=== PATIENT | male | born 1985 | race Caucasian/White ===

== ENCOUNTER 2017-05-27 10:17 | Emergency (ER) | payer OTHER ==
[2017-05-27 11:51] LABS: BILIRUBIN,URINE NEGATIVE (NEGATIVE)
[2017-05-27 11:53] LABS: BASOPHILS % (AUTO) 0.6 %; EOSINOPHILS # (AUTO) 0.2 10^3/uL (0.0-0.7); EOSINOPHILS % (AUTO) 2.7 %; HCT - HEMATOCRIT 40.6 % (42.0-52.0); LYMPHOCYTES # (AUTO) 2.2 10^3/uL (1.5-3.5); LYMPHOCYTES % (AUTO) 32.1 %; MEAN CORPUSCULAR HEMOGLOBIN 28.6 pg (27.0-31.0); MEAN CORPUSCULAR HGB CONC 34.5 g/dL (32.0-36.0); MEAN CORPUSCULAR VOLUME 83.1 fL (80.0-94.0); MEAN PLATELET VOLUME 7.8 fL (7.4-11.4); MONOCYTES # (AUTO) 0.4 10^3/uL (0.0-1.0); MONOCYTES % (AUTO) 6.4 %; NEUTROPHILS # (AUTO) 3.9 10^3/uL (1.5-6.6); NEUTROPHILS % (AUTO) 58.2 %; RED BLOOD COUNT 4.89 10^6/uL (4.70-6.10); RED CELL DISTRIBUTION WIDTH 12.8 % (12.0-15.0); UNCORRECTED WHITE BLOOD COUNT 6.8 x10^3/uL; WHITE BLOOD COUNT 6.8 x10^3/uL (4.8-10.8)
[2017-05-27 12:05] LABS: ALBUMIN/GLOBULIN RATIO 1.6 (1.0-2.2); BILIRUBIN,TOTAL 0.9 mg/dL (0.2-1.0); CALCIUM 9.2 mg/dL (8.5-10.3); POTASSIUM 4.2 mmol/L (3.5-5.0); TOTAL PROTEIN 7.5 g/dL (6.7-8.2)
[2017-05-27 12:05] LABS: UA CHARGE (STRIP ONLY) YES; UR CULTURE IF IND NOT INDICATED
[2017-05-27] MEDS ORDERED: IOPAMIDOL-300 100 ML VIAL IVP ONE (12:42)
--- NOTE | 2017-05-27 13:01 | CT Preliminary Report ---
Exam: CT Abdomen/Pelvis W/ IMPRESSION: No acute abnormality in the abdomen or pelvis. Specifically, there are no findings to exp jojo left lower quadrant pain. [facility] SITE ID: [id number]
--- NOTE | 2017-05-27 13:04 | CT Report ---
EXAM: CT ABDOMEN AND PELVIS EXAM DATE: 05/27/2017 12:01 PM. CLINICAL HISTORY: LLQ abd. pain. COMPARISONS: None. TECHNIQUE: Routine helical CT imaging was performed through the abdomen and pelvis. IV contrast: 100 cc Isovue-300. Enteric contrast: No. Reconstructions: Coronal and sagittal. Per technologist: The IV line came apart from the hub; scan was stopped to repair the IV and then restarted. Those images were clipped so the patient was rescanned. In accordance with CT protocol optimization, one or more of the following dose reduction techniques w ere utilized for this exam: automated exposure control, adjustment of mA and/or KV based on patient s ize, or use of iterative reconstructive technique. FINDINGS: Somewhat suboptimal evaluation secondary to delayed phase imaging. Lung Bases: Minimal bibasilar atelectasis. Otherwise normal. Liver: Within normal limits. Gallbladder/Bile Ducts: Within normal limits. Spleen: Within normal limits. Pancreas: Normal. Adrenal Glands: Normal. Kidneys: Low density 4.5 cm exophytic anterior left interpolar cyst. No hydronephrosis bilaterally. N o evidence of solid renal mass. Peritoneal Cavity/Bowel: No ascites or pneumoperitoneum. No bowel obstruction or abnormal stool burde n. No focal inflammatory change, adenopathy, or mass. The appendix is well visualized and normal. Pelvic Organs: The urinary bladder and imaged pelvic organs are within normal limits. Vasculature: Normal. Bones: No significant abnormality. Other: None. IMPRESSION: No acute abnormality in the abdomen or pelvis. Specifically, there are no findings to exp jojo left lower quadrant pain. [facility] Referring Provider Line: [phone] SITE ID: [id number]
--- NOTE | 2017-05-27 13:16 | ED Physician Documentation ---
PD HPI ABD PAIN - Stated complaint Stated Complaint: ABD PX/LUMP L SIDE ABD - Chief complaint Chief Complaint: Abd Pain - History obtained from History obtained from: Patient - History of Present Illness Timing - onset: How many days ago (2) Timing - details: Still present Quality: Pain Location: Other (Left sided abdomen.) Worsened by: Moving, Palpation Associated symptoms: No: Fever, Nausea, Vomiting, Diarrhea, Constipation, Dysuria, Chest pain Similar symptoms before: Has not had sx before - Additional information Additional information: The patient is a 31-year-old male who presents with left-sided abdominal pain that started 2 days ago and has been persistent since that time. It is worse with movement or with palpation. He denies any associated nausea, vomiting, fever, dysuria, or testicular pain. He has been having normal bowel movements. He denies history of similar symptoms in the past. He denies any traumatic injury. He has had no previous abdominal surgery. Review of Systems Constitutional: denies: Fever, Chills Nose: denies: Congestion Throat: denies: Sore throat Cardiac: denies: Chest pain / pressure Respiratory: denies: Dyspnea, Cough GI: reports: Abdominal Pain. denies: Nausea, Vomiting, Diarrhea : denies: Dysuria, Testicular pain Skin: denies: Rash Musculoskeletal: denies: Back pain, Extremity pain Neurologic: denies: Focal weakness, Numbness, Headache PD PAST MEDICAL HISTORY - Past Medical History Past Medical History: No Cardiovascular: None Respiratory: None Neuro: None Endocrine/Autoimmune: None GI: None - Present Medications Home Medications: Ambulatory Orders Medication Instructions Recorded Confirmed No Known Home Medications [No 05/27/17 05/27/17 Known Home Medications] - Allergies Allergies/Adverse Reactions: Allergies Allergy/AdvReac Type Severity Reaction Status Date / Time No Known Drug Allergies Allergy Verified 05/27/17 10:29 - Social History Does the pt smoke?: No Smoking Status: Never smoker Does the pt drink ETOH?: Yes Does the pt have substance abuse?: No - Immunizations Immunizations are current?: Yes - POLST Patient has POLST: No PD ED PE NORMAL - Vitals Vital signs reviewed: Yes (normal) - General General: Alert and oriented X 3, Well developed/nourished - HEENT HEENT: Atraumatic, EOMI, Pharynx benign - Neck Neck: No adenopathy, No JVD - Cardiac Cardiac: RRR, No murmur - Respiratory Respiratory: No respiratory distress, Clear bilaterally - Abdomen Abdomen: Normal bowel sounds, Soft, No organomegaly, Other (Mild tenderness to palpation of the left lower quadrant and left abdominal wall to the costal margin in the posterior axillary line. There is no rebound tenderness or guarding. No masses palpated.) - Back Back: No CVA TTP - Derm Derm: No rash - Extremities Extremities: No edema, No calf tenderness / cord - Neuro Neuro: Alert and oriented X 3, No motor deficit, Normal speech Results - Vitals Vitals: Oxygen O2 Source Room air - Labs Labs: Laboratory Tests 05/27/17 05/27/17 05/27/17 10:47 11:35 11:35 WBC 6.8 RBC 4.89 Hgb 14.0 Hct 40.6 L MCV 83.1 MCH 28.6 MCHC 34.5 RDW 12.8 Plt Count 218 MPV 7.8 Neut # 3.9 Lymph # 2.2 [place] # 0.4 Eos # 0.2 Baso # 0.0 Absolute Nucleated RBC 0.00 Nucleated RBCs 0.0 Sodium 140 Potassium 4.2 Chloride 105 Carbon Dioxide 29 Anion Gap 6.0 BUN 14 Creatinine 1.0 Estimated GFR (MDRD) 87 L Glucose 85 Calcium 9.2 Total Bilirubin 0.9 AST 32 ALT 28 Alkaline Phosphatase 76 Total Protein 7.5 Albumin 4.6 Globulin 2.9 Albumin/Globulin Ratio 1.6 Lipase 33 Urine Color YELLOW Urine Clarity CLEAR Urine pH 7.0 Ur Specific [place] <=1.005 Urine Protein NEGATIVE Urine Glucose (UA) NEGATIVE Urine Ketones NEGATIVE Urine Occult Blood NEGATIVE Urine Nitrite NEGATIVE Urine Bilirubin NEGATIVE Urine Urobilinogen 0.2 (NORMAL) Ur Leukocyte Esterase NEGATIVE Ur Microscopic Review NOT INDICATED Urine Culture Comments NOT INDICATED - Rads (name of study) CT abd/pelvis with IV contrast Radiology: Prelim report reviewed, EMP read contemporaneously, See rad report ( No acute abnormality in the abdomen or pelvis. Specifically, there is no findings to explain left lower quadrant pain.) PD MEDICAL DECISION MAKING - ED course Complexity details: reviewed results, re-evaluated patient, considered differential, d/w patient, d/w family ED course: The patient's presentation is most consistent with abdominal wall strain, although the event or activity that would have caused the abdominal discomfort is not known at this time. I doubt gastritis, diverticulitis, renal colic, or other intra-abdominal process to explain his symptoms. CBC, chemistry panel, urinalysis, and CT scan of the abdomen and pelvis are all normal. The patient declined any treatment for his symptoms. I discussed with him the results of his workup, symptomatic treatment and outpatient follow-up, as well as potentially worrisome signs or symptoms that should prompt reevaluation in the emergency department. Departure - Departure Disposition: 01 Home, Self Care Clinical Impression: Abdominal wall pain in left lower quadrant Condition: Stable Instructions: ED Strain Abdominal Muscle Follow-Up: [facility] [Provider Group] Comments: You can use ibuprofen, up to 800 mg 3 times daily if needed for pain. Let pain be your guide to activity level. Follow-up with your primary physician within 2 weeks. Call to schedule appointment. Return to the emergency department if you develop increasing abdominal pain, fever, persistent vomiting, or otherwise worsening symptoms. Discharge Date/Time: 05/27/17 13:38
[2017-05-27 13:37] VITALS: BP 126/81
== END 2017-05-27 13:38 | disposition home or self-care (01) ==
LOC: ED 10:17
DX: R10.32 Left lower quadrant pain (principal)
CPT/HCPCS: 36415; 74177; 80053; 81003; 83690; 85025; 99283; 99284; Q9967; 81001; 87086

== ENCOUNTER 2017-06-05 13:46 | Emergency (ER) | payer OTHER ==
[2017-06-05 14:00] VITALS: BP 119/71
[2017-06-05] MEDS ORDERED: valACYclovir 500 MG TABLET PO STA (14:27)
--- NOTE | 2017-06-05 14:35 | ED Physician Documentation ---
History of Present Illness - Stated complaint Stated Complaint: ABD PX - Chief complaint Chief Complaint: Abd Pain - Additonal information Additional information: Patient is a 31-year-old man who is otherwise healthy. He was seen earlier in the week for abdominal pain and had negative workup including a CAT scan imaging of the abdomen and pelvis. She presents today because the pain is still in the left side of the abdomen however he has developed a rash that extends from the left lower back to the periumbilical area on the left side. Denies any fever chills there is no nausea vomiting constipation or diarrhea. Review of systems: For pertinent positive and negatives in the review of systems please see the history of present illness, otherwise all other systems have been reviewed and are negative. Dragon disclaimer: Parts of this medical record were created using voice recognition technology. Because of the inherent limitations of this system, occasional same sounding word substitutions do occur and persist despite proofreading. Please read the document for context. Review of Systems GI: denies: Abdominal Swelling, Nausea, Vomiting, Constipation, Diarrhea, Hematemesis, Bloody / black stool Skin: reports: Rash PD PAST MEDICAL HISTORY - Past Medical History Cardiovascular: None Respiratory: None Neuro: None Endocrine/Autoimmune: None GI: None - Past Surgical History Past Surgical History: Yes - Present Medications Home Medications: Ambulatory Orders Medication Instructions Recorded Confirmed Tramadol HCl 50 mg PO Q8HR PRN #14 tablet 06/05/17 Valacyclovir HCl [Valtrex] 1,000 mg PO BID #14 tablet 06/05/17 - Allergies Allergies/Adverse Reactions: Allergies Allergy/AdvReac Type Severity Reaction Status Date / Time No Known Drug Allergies Allergy Verified 05/27/17 10:29 - Social History Does the pt smoke?: No Smoking Status: Never smoker Does the pt drink ETOH?: Yes Does the pt have substance abuse?: No - Immunizations Immunizations are current?: Yes - POLST Patient has POLST: No PD ED PE NORMAL - Vitals Vital signs reviewed: Yes - General General: Alert and oriented X 3, No acute distress, Well developed/nourished - HEENT HEENT: Atraumatic, PERRL, EOMI, Pharynx benign, Dentition benign - Neck Neck: Supple, no meningeal sign, No JVD, No bruit - Cardiac Cardiac: RRR, No murmur, No gallop, No rub - Respiratory Respiratory: No respiratory distress, Clear bilaterally - Abdomen Abdomen: Normal bowel sounds, Non tender, Non distended - Derm Derm: Other (vesicular herpetic rash t10 distribution left side) Results - Vitals Vitals: Vital Signs - 24 hr 06/05/17 13:57 Temperature 36.5 C Heart Rate 73 Respiratory 18 Rate Blood Pressure 119/71 O2 Saturation 98 Oxygen O2 Source Room air PD MEDICAL DECISION MAKING - ED course Complexity details: reviewed old records ED course: Otherwise healthy 31-year-old man with a new onset rash in the left lower quadrant T10 distribution that explains his recent abdominal pain. He has been under considerable stress with his job in 2 young children at home. He was given Valtrex here and will be discharged on Valtrex he was asked to follow-up with his physician when better to talk about his herpes zoster and possible things to check in the future. Disposition: To home Clinical impression: 1. Acute herpes zoster left T10 distribution rash Departure - Departure Disposition: 01 Home, Self Care Clinical Impression: Shingles outbreak Qualifiers: Herpes zoster complications: without complications Qualified Code(s): B02.9 - Zoster without complications Condition: Good Instructions: ED Shingles Follow-Up: your,physician [Other] Prescriptions: Tramadol HCl 50 mg PO Q8HR PRN #14 tablet PRN Reason: Pain Valacyclovir HCl [Valtrex] 1,000 mg PO BID #14 tablet
[2017-06-05] MEDS ORDERED: valACYclovir 500 MG TABLET ONE (14:37)
== END 2017-06-05 14:41 | disposition home or self-care (01) ==
LOC: ED 13:46
DX: B02.9 Zoster without complications (principal)
CPT/HCPCS: 99283; A9270; 80053; 83690; 85025

== ENCOUNTER 2018-05-17 11:31 | Emergency (ER) | payer OTHER ==
[2018-05-17 12:12] LABS: BILIRUBIN,URINE NEGATIVE (NEGATIVE); GLUCOSE, URINE (UA) NEGATIVE (NEGATIVE); KETONES,URINE (UA) NEGATIVE (NEGATIVE); LEUKOCYTE ESTERASE, URINE NEGATIVE (NEGATIVE); NITRITE,URINE NEGATIVE (NEGATIVE); OCCULT BLOOD,URINE NEGATIVE (NEGATIVE); PROTEIN,URINE NEGATIVE (NEGATIVE); UROBILINOGEN,URINE 0.2 (NORMAL) E.U./dL (NORMAL)
[2018-05-17 12:13] LABS: CLARITY,URINE CLEAR (CLEAR)
--- NOTE | 2018-05-17 12:19 | ED Physician Documentation ---
PD HPI ABD PAIN - Stated complaint Stated Complaint: DIZZY/SIDE PX - Chief complaint Chief Complaint: Abd Pain - History obtained from History obtained from: Patient - History of Present Illness Timing - onset: Other (This is a previously healthy 32-year-old gentleman who is active duty in the [employer]. He has had increasing what he describes as dizziness for the last couple of months. It is a frontal head pressure, but no headache with occasional ear fullness and ringing. It is worse if he stands up. Ask him if it is a spinning sensation he vacillates and eventually says may be partially and then no. He notes occasional difficulty swallowing without sore throat. He also has a left flank pain that is slowly worsening over 2 weeks without hematuria or radiation. There is no associated fatigue, weight loss, fevers, chills. He does have a runny nose but no sore throat.) Review of Systems Constitutional: denies: Fever, Chills, Myalgias, Fatigue, Weight Loss, Sweats Eyes: denies: Loss of vision, Decreased vision Ears: denies: Ear pain Nose: reports: Rhinorrhea / runny nose. denies: Congestion Throat: denies: Sore throat GI: denies: Abdominal Pain, Nausea, Vomiting, Constipation, Diarrhea : denies: Dysuria, Frequency, Hematuria PD PAST MEDICAL HISTORY - Past Medical History Past Medical History: No Cardiovascular: None Respiratory: None Endocrine/Autoimmune: None GI: None - Past Surgical History Past Surgical History: Yes - Present Medications Home Medications: Ambulatory Orders Medication Instructions Recorded Confirmed Tramadol HCl 50 mg PO Q8HR PRN #14 tablet 06/05/17 Valacyclovir HCl [Valtrex] 1,000 mg PO BID #14 tablet 06/05/17 - Allergies Allergies/Adverse Reactions: Allergies Allergy/AdvReac Type Severity Reaction Status Date / Time No Known Drug Allergies Allergy Verified 05/27/17 10:29 - Social History Does the pt smoke?: No Smoking Status: Never smoker Does the pt drink ETOH?: Yes Does the pt have substance abuse?: No - Immunizations Immunizations are current?: Yes - POLST Patient has POLST: No PD ED PE NORMAL - Vitals Vital signs reviewed: Yes - General General: Alert and oriented X 3, No acute distress - HEENT HEENT: PERRL, EOMI, Other (He has a very small amount of nystagmus in all directions.) - Neck Neck: Supple, no meningeal sign, No bony TTP - Cardiac Cardiac: RRR, No murmur - Respiratory Respiratory: No respiratory distress, Clear bilaterally - Abdomen Abdomen: Normal bowel sounds, Soft, Non tender - Back Back: Other (There is focal tenderness around rib 10, posterior axillary line on the left with a little lump there that I think is a lipoma.) - Derm Derm: Normal color, Warm and dry - Extremities Extremities: No edema, No calf tenderness / cord - Neuro Neuro: Alert and oriented X 3, Normal speech - Psych Psych: Normal mood, Normal affect Results - Vitals Vitals: Vital Signs - 24 hr 05/17/18 11:40 Temperature 36.5 C Heart Rate 76 Respiratory 20 Rate Blood Pressure 130/80 O2 Saturation 98 Oxygen O2 Source Room air - Labs Labs: Laboratory Tests 05/17/18 05/17/18 05/17/18 11:55 12:32 12:32 WBC 5.9 RBC 4.87 Hgb 14.1 Hct 40.5 L MCV 83.1 MCH 28.9 MCHC 34.8 RDW 12.8 Plt Count 230 MPV 7.5 Neut # (Auto) 3.1 Lymph # (Auto) 2.1 [place] # (Auto) 0.4 Eos # (Auto) 0.3 Baso # (Auto) 0.0 Absolute Nucleated RBC 0.00 Nucleated RBC % 0.0 Sodium 139 Potassium 4.0 Chloride 104 Carbon Dioxide 29 Anion Gap 6.0 BUN 17 Creatinine 1.0 Estimated GFR (MDRD) 86 L Glucose 94 Calcium 9.3 Total Bilirubin 0.7 AST 30 ALT 27 Alkaline Phosphatase 67 Total Protein 7.8 Albumin 4.6 Globulin 3.2 Albumin/Globulin Ratio 1.4 Lipase 36 Urine Color LIGHT YELLOW Urine Clarity CLEAR Urine pH 7.0 Ur Specific [place] <=1.005 Urine Protein NEGATIVE Urine Glucose (UA) NEGATIVE Urine Ketones NEGATIVE Urine Occult Blood NEGATIVE Urine Nitrite NEGATIVE Urine Bilirubin NEGATIVE Urine Urobilinogen 0.2 (NORMAL) Ur Leukocyte Esterase NEGATIVE Ur Microscopic Review NOT INDICATED Urine Culture Comments NOT INDICATED - Rads (name of study) CT Head Radiology: EMP read contemporaneously (normal) CT A/P Radiology: EMP read contemporaneously (Redemonstration of similarly sized 4.5 cm exophytic left renal lesion is not characterized as simple.) PD MEDICAL DECISION MAKING - ED course ED course: 32-year-old gentleman, active duty in the [employer] with odd complaints of dizziness which does not fit a particular pattern and left flank pain. She does have nystagmus on exam, otherwise his physical examination is normal and imaging shown. [place] with [place], to consider MRI of the head and left kidney. - Sepsis Event Vital Signs: Vital Signs - 24 hr 05/17/18 11:40 Temperature 36.5 C Heart Rate 76 Respiratory 20 Rate Blood Pressure 130/80 O2 Saturation 98 Oxygen O2 Source Room air Departure - Departure Disposition: 01 Home, Self Care Clinical Impression: Flank pain, Renal cyst, Nystagmus Condition: Good Record reviewed to determine appropriate education?: Yes Instructions: Simple Renal Cysts, ED Abdominal Pain Unkn Cause Comments: FOLLOWUP AT [facility], I SPOKE WITH DR RYAN TODAY, YOU MAY NEED MORE IMAGING OF YOUR BRAIN AND LEFT KIDNEY. RETURN FOR NEW OR WORSENING SYMPTOMS.
[2018-05-17] MEDS ORDERED: IOPAMIDOL-300 100 ML VIAL ONE (12:28)
[2018-05-17 12:38] LABS: BASOPHILS % (AUTO) 0.8 %; EOSINOPHILS # (AUTO) 0.3 10^3/uL (0.0-0.7); EOSINOPHILS % (AUTO) 5.1 %; HGB - HEMOGLOBIN 14.1 g/dL (14.0-18.0); LYMPHOCYTES # (AUTO) 2.1 10^3/uL (1.5-3.5); LYMPHOCYTES % (AUTO) 34.5 %; MEAN CORPUSCULAR HEMOGLOBIN 28.9 pg (27.0-31.0); MEAN CORPUSCULAR HGB CONC 34.8 g/dL (32.0-36.0); MEAN CORPUSCULAR VOLUME 83.1 fL (80.0-94.0); MEAN PLATELET VOLUME 7.5 fL (7.4-11.4); MONOCYTES # (AUTO) 0.4 10^3/uL (0.0-1.0); MONOCYTES % (AUTO) 7.5 %; NEUTROPHILS # (AUTO) 3.1 10^3/uL (1.5-6.6); NEUTROPHILS % (AUTO) 52.1 %; PLT - PLATELET COUNT 230 10^3/uL (130-450); RED BLOOD COUNT 4.87 10^6/uL (4.70-6.10); RED CELL DISTRIBUTION WIDTH 12.8 % (12.0-15.0); WHITE BLOOD COUNT 5.9 x10^3/uL (4.8-10.8)
[2018-05-17 12:57] LABS: ALBUMIN 4.6 g/dL (3.2-5.5); ALBUMIN/GLOBULIN RATIO 1.4 (1.0-2.2); BILIRUBIN,TOTAL 0.7 mg/dL (0.2-1.0); CALCIUM 9.3 mg/dL (8.5-10.3); TOTAL PROTEIN 7.8 g/dL (6.7-8.2)
--- NOTE | 2018-05-17 13:29 | CT Report ---
Procedure Date: 05/17/2018 Accession Number: [id number] / [id number] Procedure: CT - Head W/O CPT Code: FULL RESULT: EXAM: CT HEAD EXAM DATE: 05/17/2018 01:19 PM. CLINICAL HISTORY: Dizzy; ataxia. COMPARISON: None. TECHNIQUE: Multiaxial CT images were obtained from the foramen magnum to the vertex. Reformats: Sagittal and coronal. IV contrast: None. In accordance with CT protocol optimization, one or more of the following dose reduction techniques were utilized for this exam: automated exposure control, adjustment of mA and/or KV based on patient size, or use of iterative reconstructive technique. FINDINGS: Parenchyma: No intraparenchymal hemorrhage. No evidence of mass, midline shift, or CT findings of infarction. Mari-white differentiation is distinct. Extraaxial Spaces: Normal for age. No subdural or epidural collections identified. Ventricles: Normal in size and position. Sinuses and Orbits: Imaged paranasal sinuses, orbits, and mastoids show no significant abnormality. Bones: No evidence of fracture or calvarial defect. Other: None. IMPRESSION: No acute intracranial abnormality. [facility]
--- NOTE | 2018-05-17 13:37 | CT Report ---
Procedure Date: 05/17/2018 Accession Number: [id number] / [id number] Procedure: CT - Abdomen/Pelvis W/ CPT Code: FULL RESULT: EXAM: CT ABDOMEN AND PELVIS EXAM DATE: 05/17/2018 01:19 PM. CLINICAL HISTORY: IV only, left flank pain and lump about rib 10. COMPARISONS: Abdomen/pelvis with contrast 05/27/2017 12:00 AM. TECHNIQUE: Routine helical CT imaging was performed through the abdomen and pelvis. IV contrast: ISOVUE 300 100mL. Enteric contrast: No. Reconstructions: Coronal and sagittal. In accordance with CT protocol optimization, one or more of the following dose reduction techniques were utilized for this exam: automated exposure control, adjustment of mA and/or KV based on patient size, or use of iterative reconstructive technique. FINDINGS: Lung Bases: Unremarkable. Liver: There is a right lobe hepatic hypodensity which is too small to characterize. Liver is otherwise normal. Gallbladder/Bile Ducts: Unremarkable. Spleen: Normal. Pancreas: Normal. Adrenal Glands: Normal. Kidneys: 4.8 x 4.3 cm cyst which is not characterized as simple is redemonstrated. The kidneys otherwise do not demonstrate hydronephrosis calculi or perinephric fat stranding within limitation that contrast examination may obscure a very small ureteral calculus. No hydroureter or periureteric fat stranding is seen. Peritoneal Cavity/Bowel: Normal. No free fluid, free air or adenopathy. No masses or acute inflammatory process. The appendix is well visualized and normal. Pelvic Organs: Normal. The bladder and visualized pelvic organs are within normal limits. Vasculature: No aneurysms or other significant abnormality. Bones: No significant abnormality. Other: None. IMPRESSION: 1. No acute intraabdominal or intrapelvic abnormality. 2. Left renal cyst which is not characterized as simple by CT. Recommend retroperitoneal ultrasound for further characterization. [facility]
[2018-05-17 13:59] VITALS: BP 113/85
[2018-05-17] MEDS ORDERED: IOPAMIDOL-300 100 ML VIAL IVP ONE (15:00)
== END 2018-05-17 14:05 | disposition home or self-care (01) ==
LOC: ED 11:31
DX: R10.32 Left lower quadrant pain (principal); N28.1 Cyst of kidney, acquired; H55.00 Unspecified nystagmus
CPT/HCPCS: 70450; 74177; 80053; 81003; 83690; 85025; 99283; Q9967; 36415; 81001; 87086

== ENCOUNTER 2018-05-29 09:11 | Emergency (ER) | payer OTHER ==
--- NOTE | 2018-05-29 09:29 | ED Physician Documentation ---
PD HPI URI - Stated complaint Stated Complaint: HARD TO SWOLLOW/THROWING UP - Chief complaint Chief Complaint: Heent - History obtained from History obtained from: Patient - History of Present Illness Timing - onset: How many hours ago (1), Today (about 8:15, has onset just after taking Ibuprofen for some aches. [place] like it was stuck in his throat/esophagus and had trouble swallowing. No trouble breathing per se. No general rash, itching, nor feeling of lightheaded. Had pain with swallowing and was vomiting up any attempted oral intake. Here for evaluation. Still feeling uncomfortable with swallowing.) Timing duration: Hours (1) Timing details: Abrupt onset, Still present Associated symptoms: Sore throat. No: Fever, Chills, Nasal congestion, Swollen nodes, Dry cough, Chest pain, Dyspnea Contributing factors: Other (onset after swallowing oral med). No: Sick contact , Travel, Immunocompromised Worsened by: Other (swallowing/ drinking fluids.) Similar symptoms before: Has not had sx before Recently seen: Not recently seen Review of Systems Constitutional: denies: Fever, Chills Nose: denies: Rhinorrhea / runny nose, Congestion Throat: reports: Sore throat. denies: Oral lesions / sores, Swollen tonsils Cardiac: denies: Chest pain / pressure, Palpitations Respiratory: denies: Dyspnea, Cough Skin: denies: Rash, Lesions Neurologic: denies: Generalized weakness, Near syncope, Syncope PD PAST MEDICAL HISTORY - Past Medical History Cardiovascular: None Respiratory: None Endocrine/Autoimmune: None GI: None - Past Surgical History Past Surgical History: Yes - Present Medications Home Medications: Ambulatory Orders Medication Instructions Recorded Confirmed Dexamethasone [Decadron] 4 mg PO DAILY #5 tablet 05/29/18 Lidocaine Viscous 2% [Xylocaine 5 ml PO Q4H PRN #1 bottle 05/29/18 Viscous 2%] - Allergies Allergies/Adverse Reactions: Allergies Allergy/AdvReac Type Severity Reaction Status Date / Time No Known Drug Allergies Allergy Verified 05/27/17 10:29 - Social History Does the pt smoke?: No Smoking Status: Never smoker Does the pt drink ETOH?: Yes Does the pt have substance abuse?: No - Immunizations Immunizations are current?: Yes - POLST Patient has POLST: No PD ED PE NORMAL - Vitals Vital signs reviewed: Yes - General General: Alert and oriented X 3, No acute distress, Well developed/nourished - HEENT HEENT: Ears normal, Pharynx benign, Other (normal voice. Able to swallow saliva and small sips of water. ) - Neck Neck: Supple, no meningeal sign, No adenopathy - Cardiac Cardiac: RRR, No murmur - Respiratory Respiratory: Clear bilaterally - Neuro Neuro: Alert and oriented X 3, No motor deficit, Normal speech Results - Vitals Vitals: Oxygen O2 Source Room air PD MEDICAL DECISION MAKING - ED course Complexity details: considered differential (likely local irritation from ibuprofen stuck briefly. Better with GI cocktail. Will give it a day. Less likely allergy to the Ibuprofen, given just throat irritation and not other allergy response symptoms. ), d/w patient - Sepsis Event Vital Signs: Oxygen O2 Source Room air Departure - Departure Disposition: 01 Home, Self Care Clinical Impression: Esophageal abnormality Condition: Stable Record reviewed to determine appropriate education?: Yes [facility]] Prescriptions: Dexamethasone [Decadron] 4 mg PO DAILY #5 tablet Lidocaine Viscous 2% [Xylocaine Viscous 2%] 5 ml PO Q4H PRN #1 bottle PRN Reason: Pain Comments: Drink lots of fluids today. Soft food only today. This may have been an irritation of the esophagus from a pills getting stuck and that should heal within a day or so. Use lidocaine if needed for irritation of the throat. Decadron daily for a few more days for inflammation. I would also consider possibly an allergic reaction and so avoid the ibuprofen for couple of days and use Tylenol instead if needed for pains. Continue your allergy medicines. If you are feeling better over the next few days you can take an ibuprofen again and see if you have any similar symptoms. Recheck if not improved over the next day or 2. Rest today. Forms: Activity restrictions Discharge Date/Time: 05/29/18 11:24
[2018-05-29] MEDS ORDERED: MAG HYDROX/AL HYDROX/SIMETH 30 ML UDC PO STA (09:49)
[2018-05-29] MEDS ORDERED: LIDOCAINE VISCOUS 2% 15 ML UDC MM STA (09:49)
[2018-05-29] MEDS ORDERED: diphenhydrAMINE ELIXIR 25 MG/10 ML UDC PO STA (09:49)
[2018-05-29] MEDS ORDERED: DEXAMETHASONE 10 MG/ML VIAL PO STA (09:49)
[2018-05-29] MEDS ORDERED: CHERRY SYRUP 10 ML UDC PO ONE (10:09)
[2018-05-29 11:12] VITALS: BP 123/81
== END 2018-05-29 11:24 | disposition home or self-care (01) ==
LOC: ED 09:11
DX: K22.8 Other specified diseases of esophagus (principal)
CPT/HCPCS: 99283; A9270

== ENCOUNTER 2018-06-23 12:45 | Outpatient (CLI) | payer OTHER ==
[2018-06-23] MEDS ORDERED: GADOBUTROL 10 MMOL/10 ML VIAL ONE (13:08)
[2018-06-23] MEDS ORDERED: GADOBUTROL 10 MMOL/10 ML VIAL IVP ONE ×2 (13:26)
--- NOTE | 2018-06-24 11:59 | MRI Report ---
Reason: OTHER FORMS OF NYSTAGMUS Procedure Date: 06/23/2018 Accession Number: [id number] / [id number] Procedure: MRI - Brain W/WO CPT Code: FULL RESULT: EXAM: MRI BRAIN AND ORBITS WITHOUT AND WITH CONTRAST EXAM DATE: 06/23/2018 02:08 PM. CLINICAL HISTORY: Nystagmus. COMPARISON: Brain CT from 05/17/2018. TECHNIQUE: Multiplanar, multisequence T1-weighted and fluid-sensitive MR sequences of the brain were performed. Sequences optimized for routine evaluation. Other: None. IV Contrast: 8.5 mL of Gadavist. FINDINGS: Brain Volume: Normal for age. Parenchyma: No acute hemorrhage, mass, or infarct. No white matter lesions identified. No abnormal enhancement. Ventricles/Cisterns: No hydrocephalus. No abnormal extra-axial fluid collection or hemorrhage. Orbits: The globes are symmetric in size. There is no evidence of lens dislocation, intraocular hemorrhage, or an intraocular mass lesion. The extraocular muscles, optic nerves, and superior ophthalmic veins are normal in appearance. Sella Turcica: The pituitary gland, cavernous sinuses, suprasellar cistern and optic chiasm are unremarkable. IAC: Symmetric and unremarkable. Vasculature: Normal signal flow void is seen in the major arterial structures at the skull base. The dural sinuses are patent and enhance normally. Sinuses: No acute sinus disease. Bones: No focal pathologic appearing marrow signal changes. IMPRESSION: Normal contrast-enhanced brain and orbits MRI. [facility]
== END 2018-06-23 12:46 | disposition home or self-care (01) ==
LOC: DI 12:45
PROVIDERS: ATTEND General Practice
DX: H55.09 Other forms of nystagmus (principal)
CPT/HCPCS: 70553; A9585

== ENCOUNTER 2018-08-03 08:20 | Emergency (ER) | payer OTHER ==
[2018-08-03 08:39] VITALS: BP 114/59
[2018-08-03] MEDS ORDERED: IBUPROFEN 800 MG TABLET PO STA (09:27)
--- NOTE | 2018-08-03 09:30 | ED Physician Documentation ---
PD HPI URI - Stated complaint Stated Complaint: COLD LIKE SX - Chief complaint Chief Complaint: Heent - History obtained from History obtained from: Patient - History of Present Illness Timing - onset: How many days ago (2) Timing duration: Days (2) Timing details: Still present Associated symptoms: Sore throat, Productive cough - Additional information Additional information: The patient is a 32-year-old male who presents with sore throat, congestion, productive cough, and myalgias, that have been ongoing for the past 2 days. He denies fever, shortness of breath, nausea, vomiting, or diarrhea. He does report associated headache. He does not smoke cigarettes. Review of Systems Constitutional: reports: Fatigue. denies: Fever Ears: denies: Tinnitus/ringing Nose: reports: Congestion Throat: reports: Sore throat Cardiac: denies: Chest pain / pressure Respiratory: reports: Cough. denies: Dyspnea GI: denies: Abdominal Pain, Nausea, Vomiting : denies: Dysuria Skin: denies: Rash Musculoskeletal: denies: Back pain Neurologic: reports: Headache PD PAST MEDICAL HISTORY - Past Medical History Cardiovascular: None Respiratory: None Endocrine/Autoimmune: None GI: None Derm: Other - Past Surgical History Past Surgical History: Yes - Present Medications Home Medications: Ambulatory Orders Medication Instructions Recorded Confirmed Dexamethasone [Decadron] 4 mg PO DAILY #5 tablet 05/29/18 Lidocaine Viscous 2% [Xylocaine 5 ml PO Q4H PRN #1 bottle 05/29/18 Viscous 2%] - Allergies Allergies/Adverse Reactions: Allergies Allergy/AdvReac Type Severity Reaction Status Date / Time No Known Drug Allergies Allergy Verified 08/03/18 08:38 - Social History Does the pt smoke?: No Smoking Status: Never smoker Does the pt drink ETOH?: Yes Does the pt have substance abuse?: No - Immunizations Immunizations are current?: Yes - POLST Patient has POLST: No PD ED PE NORMAL - Vitals Vital signs reviewed: Yes (Normal) - General General: Alert and oriented X 3, Well developed/nourished - HEENT HEENT: Atraumatic, Ears normal, Other (Oropharynx is mildly erythematous, without exudates.) - Neck Neck: Supple, no meningeal sign, No adenopathy, No JVD - Cardiac Cardiac: RRR - Respiratory Respiratory: No respiratory distress, Clear bilaterally - Abdomen Abdomen: Soft, Non tender - Back Back: No CVA TTP - Derm Derm: No rash - Extremities Extremities: No edema, No calf tenderness / cord - Neuro Neuro: Alert and oriented X 3, No motor deficit, Normal speech Results - Vitals Vitals: Oxygen O2 Source Room air - Labs Labs: Microbiology 08/03/18 09:20 Group A Strep Throat Culture - Final Throat Beta Hemolytic Strep Group C Laboratory Tests 08/03/18 09:20 Group A Strep Rapid Negative PD MEDICAL DECISION MAKING - ED course Complexity details: reviewed results, re-evaluated patient, considered differential, d/w patient ED course: The patient's presentation is most consistent with viral upper respiratory inf ection, with sore throat. Rapid strep screen is negative. Treatment in the emergency department included administration of ibuprofen 800 mg orally. I discussed with him the expected course of illness, symptomatic treatment and outpatient follow-up, as well as potentially worrisome signs or symptoms that should prompt reevaluation in the emergency department. Departure - Departure Disposition: Home, Self Care Clinical Impression: Viral URI Condition: Stable Instructions: ED URI Viral Follow-Up: LIBBY SANTOS DO [Primary Care Provider] - Comments: You can use Tylenol or ibuprofen if needed for fever or discomfort. Drink plenty of fluids. Follow-up with your primary physician within 2 weeks. Call to schedule an appointment. Return to the emergency department if increasing difficulty breathing, or otherwise worsening symptoms. Forms: Activity restrictions Discharge Date/Time: 08/03/18 10:53
== END 2018-08-03 10:53 | disposition home or self-care (01) ==
LOC: ED 08:20
DX: J06.9 Acute upper respiratory infection, unspecified (principal); B97.89 Other viral agents as the cause of diseases classified elsewhere
CPT/HCPCS: 87070; 87430; 99282; 99283; A9270

== ENCOUNTER 2024-01-14 13:07 | Emergency (ER) | payer OTHER ==
--- NOTE | 2024-01-14 13:25 | ED Physician Documentation ---
PD HPI MHE - Stated complaint Stated Complaint: SI - Chief complaint Chief Complaint: MHE - Additional information Additional information: 38-year-old male with extensive history of depression currently on duloxetine presents emergency department " following protocol" for thoughts of not wanting to be here anymore. Patient says that things at work have been stressful he says this is a buildup and an accumulation of multiple things but says that he has been having thoughts of just not wanting to exist anymore no active or current thoughts of a plan of suicidal ideation but just wishes that he was not here anymore. No homicidal thoughts he is not seeing or hearing anything that is not there. PD PAST MEDICAL HISTORY - Past Medical History Cardiovascular: None Respiratory: None Endocrine/Autoimmune: None GI: None Psych: Depression Derm: Other - Past Surgical History Past Surgical History: Yes - Present Medications Home Medications: Ambulatory Orders Medication Instructions Recorded Confirmed DULoxetine [Cymbalta] 90 mg PO DAILY 01/14/24 01/14/24 - Allergies Allergies/Adverse Reactions: Allergies Allergy/AdvReac Type Severity Reaction Status Date / Time No Known Drug Allergies Allergy Verified 01/14/24 13:29 - Social History Does the pt smoke?: No Smoking Status: Never smoker Does the pt drink ETOH?: Yes Does the pt have substance abuse?: No - Immunizations Immunizations are current?: Yes - POLST Patient has POLST: No PD ED PE NORMAL - Vitals Vital signs reviewed: Yes - General General: Alert and oriented X 3, No acute distress, Well developed/nourished - HEENT HEENT: Atraumatic, PERRL, EOMI - Cardiac Cardiac: RRR - Respiratory Respiratory: No respiratory distress, Clear bilaterally - Abdomen Abdomen: Normal bowel sounds, Soft PD ED PE EXPANDED - Psych Psych: Normal, Depressed. No: Suicidal, Homicidal, Tearful, Withdrawn, Poor eye contact, Agitated, Manic, Pressured speech, Flight of ideas, Auditory hallucinations, Visual hallucinations, Tactile hallucinations, Delusions Results - Vitals Vitals: Vital Signs - 24 hr 01/14/24 01/14/24 13:11 17:23 Temperature 36.5 C Heart Rate 67 72 Respiratory 18 18 Rate Blood Pressure 136/92 H 108/88 H O2 Saturation 96 99 Oxygen O2 Source Room air - Labs Labs: Laboratory Tests 01/14/24 01/14/24 01/14/24 13:55 13:55 14:00 WBC 8.1 RBC 4.71 Hgb 13.2 L Hct 40.4 L MCV 85.8 MCH 28.0 MCHC 32.7 RDW 12.6 Plt Count 252 MPV 8.9 Neut # (Auto) 5.9 Lymph # (Auto) 1.7 [place] # (Auto) 0.3 Eos # (Auto) 0.1 Baso # (Auto) 0.0 Absolute Nucleated RBC 0.00 Nucleated RBC % 0.0 Sodium 136 Potassium 3.9 Chloride 102 Carbon Dioxide 27 Anion Gap 7.0 BUN 10 Creatinine 1.0 Estimated GFR (MDRD) 83 L Glucose 85 Calcium 9.6 Magnesium 1.9 Total Bilirubin 0.6 AST 27 ALT 23 Alkaline Phosphatase 101 Total Creatine Kinase 103 Total Protein 7.2 Albumin 4.6 Globulin 2.6 Albumin/Globulin Ratio 1.8 Lipase 39 TSH 1.44 Urine Color YELLOW Urine Clarity CLEAR Urine pH 6.0 Ur Specific [place] <=1.005 Urine Protein NEGATIVE Urine Glucose (UA) NEGATIVE Urine Ketones NEGATIVE Urine Occult Blood NEGATIVE Urine Nitrite NEGATIVE Urine Bilirubin NEGATIVE Urine Urobilinogen 0.2 (NORMAL) Ur Leukocyte Esterase NEGATIVE Ur Microscopic Review NOT INDICATED Urine Culture Comments NOT INDICATED Salicylates < 1.5 Urine Opiates Screen NEGATIVE Ur Buprenorphine Scrn NEGATIVE Ur Oxycodone Screen NEGATIVE Urine Methadone Screen NEGATIVE Acetaminophen < 0.1 Ur Barbiturates Screen NEGATIVE Ur Tricyclics Screen NEGATIVE Ur Phencyclidine Scrn NEGATIVE Ur Amphetamine Screen NEGATIVE U Methamphetamines Scrn NEGATIVE U Benzodiazepines Scrn NEGATIVE Urine Cocaine Screen NEGATIVE U Cannabinoids Screen NEGATIVE Ur Drug Screen Comment CUTOFF CONC BELOW: Ethyl Alcohol < 10.0 PD Medical Decision Making - ED course ED course: 38-year-old male presents emergency department with passive suicidal thoughts sounds like he does not have a plan he has more so thoughts of just not wanting to be here anymore. [facility]er who is also in the [facility] is at bedside and he points to his coworker saying " I am just following protocol" he has no desire to be hospitalized he says that he is on duloxetine and is wondering if maybe he needs a new medication for his depression as he is just feeling it nonexistent. Labs were complete no leukocytosis mild anemia, hemoglobin 13.2 hematocrit 40.4, CMP is unremarkable, urinalysis unremarkable, toxicology does not show any positives to any substances, and negative alcohol. Patient spoke with telepsych they are not recommending inpatient hospitalization at this point in time. Patient remains calm and cooperative throughout entire visit. At this point in time he is safe for discharge he has outpatient follow- up with [facility] and they are aware visit here in the emergency department hospitalization not required. Patient given resources and told when to come back to the emergency department for suicidal ideation. Patient left with a coworker from the [facility] Departure - Departure Disposition: 01 Home, Self Care Clinical Impression: Suicidal ideation Condition: Good Instructions: ED Stress React, ED Depression Comments: Rip I am sorry that you are going through this right now. He has spoken with the on-call telemetry psych provider who is suggesting at this point in time it is safe for you to discharge. Please have a very low threshold to come back to the emergency department if you are still having ongoing suicidal ideation. Please call [phone] if you start to develop any worsening suicidal thoughts or present back to the emergency department. Please follow-up with mental health specialists as soon as possible through the [facility]. Forms: PCP List Discharge Date/Time: 01/14/24 17:23
[2024-01-14 13:59] LABS: BASOPHILS % (AUTO) 0.4 %; EOSINOPHILS # (AUTO) 0.1 10^3/uL (0.0-0.7); HCT - HEMATOCRIT 40.4 % (42.0-52.0); HGB - HEMOGLOBIN 13.2 g/dL (14.0-18.0); LYMPHOCYTES # (AUTO) 1.7 10^3/uL (1.5-3.5); LYMPHOCYTES % (AUTO) 21.5 %; MEAN CORPUSCULAR HGB CONC 32.7 g/dL (32.0-36.0); MEAN CORPUSCULAR VOLUME 85.8 fL (80.0-94.0); MEAN PLATELET VOLUME 8.9 fL (7.4-11.4); MONOCYTES # (AUTO) 0.3 10^3/uL (0.0-1.0); NEUTROPHILS # (AUTO) 5.9 10^3/uL (1.5-6.6); NEUTROPHILS % (AUTO) 72.9 %; PLT - PLATELET COUNT 252 10^3/uL (130-450); RED BLOOD COUNT 4.71 10^6/uL (4.70-6.10); RED CELL DISTRIBUTION WIDTH 12.6 % (12.0-15.0); WHITE BLOOD COUNT 8.1 x10^3/uL (4.8-10.8)
[2024-01-14 14:10] LABS: BILIRUBIN,URINE NEGATIVE (NEGATIVE); GLUCOSE, URINE (UA) NEGATIVE (NEGATIVE); KETONES,URINE (UA) NEGATIVE (NEGATIVE); LEUKOCYTE ESTERASE, URINE NEGATIVE (NEGATIVE); NITRITE,URINE NEGATIVE (NEGATIVE); OCCULT BLOOD,URINE NEGATIVE (NEGATIVE); PROTEIN,URINE NEGATIVE (NEGATIVE); UROBILINOGEN,URINE 0.2 (NORMAL) E.U./dL (NORMAL)
[2024-01-14 14:12] LABS: CLARITY,URINE CLEAR (CLEAR)
[2024-01-14 14:16] LABS: ALBUMIN 4.6 g/dL (3.2-5.5); ALBUMIN/GLOBULIN RATIO 1.8 (1.0-2.2); ALKALINE PHOSPHATASE 101 IU/L (42-121); ALT ALANINE AMINOTRANSFERASE 23 IU/L (10-60); AST ASPARTATE AMINOTRANSFERASE 27 IU/L (10-42); BILIRUBIN,TOTAL 0.6 mg/dL (0.2-1.0); BUN - BLOOD UREA NITROGEN 10 mg/dL (6-20); CALCIUM 9.6 mg/dL (8.5-10.3); CARBON DIOXIDE - CO2 27 mmol/L (21-32); CHLORIDE 102 mmol/L (101-111); CK- CREATINE KINASE 103 IU/L (30-223); ETOH - ETHANOL < 10.0 mg/dL; GFR - MDRD 83 (>89); GLUCOSE 85 mg/dL (74-104); LIPASE 39 U/L (11-82); MAGNESIUM 1.9 mg/dL (1.7-2.3); POTASSIUM 3.9 mmol/L (3.5-4.5); SODIUM 136 mmol/L (135-145); TOTAL PROTEIN 7.2 g/dL (6.4-8.9)
[2024-01-14 14:19] LABS: AMPHETAMINE SCREEN,URINE NEGATIVE (NEGATIVE); BARBITURATE SCREEN,UR NEGATIVE (NEGATIVE); BENZODIAZEPINES SCREEN, URINE NEGATIVE (NEGATIVE); BUPRENORPHINE SCREEN, URINE NEGATIVE (NEGATIVE); COCAINE SCREEN URINE NEGATIVE (NEGATIVE); METHADONE SCREEN, URINE NEGATIVE (NEGATIVE); METHAMPHETAMINES SCREEN, URINE NEGATIVE (NEGATIVE); OPIATE SCREEN, URINE NEGATIVE (NEGATIVE); OXYCODONE SCREEN, URINE NEGATIVE (NEGATIVE); THC CANNABINOID SCREEN, URINE NEGATIVE (NEGATIVE); TRICYCLIC ANTIDEPRESSANT,URINE NEGATIVE (NEGATIVE)
[2024-01-14 14:22] LABS: ACETAMINOPHEN < 0.1 ug/mL; SALICYLATE < 1.5 mg/dL
[2024-01-14 14:28] LABS: THYROID STIMULATING HORMONE 1.44 uIU/mL (0.34-5.60)
--- NOTE | 2024-01-14 16:12 | TELEPSYCH PHYS NOTE ---
[facility] Telepsych Consult Consult Date: 01/14/24 Name of Referring Provider:: ALEIDA Cruz Reason for Consult: Psychiatric Evaluation - Suicide Risk Sreening (ASQ Tool) In the past few weeks, have you wished you were ?: Yes In the past few weeks, have you felt that you or your family would be better off if you were ?: Yes In the past week, have you been having thoughts about killing yourself?: No Have you ever tried to kill yourself?: No - Assessment Language: Romansh Loss Prevention Officer Required: No Cultural, Yazidi or Spiritual Preferences: None identified Chief Complaint: Per ED Provider Note: 38-year-old male presents emergency department with passive suicidal thoughts sounds like he does not have a plan he has more so thoughts of just not wanting to be here anymore. He is within the [facility] and his coworker who is also in the [facility] is at bedside and he points to his coworker saying " I am just following protocol" he has no desire to be hospitalized he says that he is on duloxetine and is wondering if maybe he needs a new medication for his depression as he is just feeling it nonexistent. History of Present Illness: 38 year old male He states, "I was having some suicidal ideation, I've been having them for a couple weeks. Got to [place] point I couldn't do it anymore."I ask if he is having actual SI or thoughts of wanting to be and he denies any SI but endorses thoughts of wanting to be . This has happened in the past. I ask how I can help him best, "I don't know." Part of [facility] protocol is to send them to the ED. He denies plan or intent to act on the thoughts. Denies any history of harm to self. He is currently in therapy. No current OP psychiatry. He has been diagnosed with depression in the past. NO history of IP admissions. Sleep is, "ok, it could also be better." He has things to live for, "My kids." Appetite has been, "it's good." Energy has been, "it's ok." He has felt depressed for, "I kind of always am depressed." The thoughts of wanting to be started 2 months ago. He is with children. His home is 1 hr away[place] the [place]. 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 Stresors include, "the [facility]." Contract to leave the [employer] is October of next year. No other stressors that are out of the ordinary. He takes Cymbalta 90 mg currently. He has taken this for 2 years. It has never really completely worked, "it does help, it doesn't make me super happy." Denies any manic or psychotic symptoms. Family history of mental illness: brother with depression. he does not have access to a firearm. Suicide Ideation - Homicide Ideation - Self Harm: Denies SI Denies HI Endorses thoughts of wanting to be ; denies plan/intent Psychiatric History - Treatment History: Denies history of IP admissions Endorses current OP therapy Denies current OP psychiatry - Medication & Allergies Home Medications: Ambulatory Orders Medication Instructions Recorded Confirmed DULoxetine [Cymbalta] 90 mg PO DAILY 01/14/24 01/14/24 Allergies/Adverse Reactions: Allergies Allergy/AdvReac Type Severity Reaction Status Date / Time No Known Drug Allergies Allergy Verified 01/14/24 13:29 - Drug & Alcohol History Does patient have Drug/ETOH history or addictive behavior?: No Use: Uses substance without health or social issues: Alcohol (uses 'socially', "a beer twice a week.") Abuse: Recurrent use of substance despite neg consequences: NONE Dependence: Experiences withdrawal or developed tolerances: NONE - Trauma Does the patient have a history of trauma, abuse, neglect or explotation?: Yes History of trauma, abuse, neglect, or exploitation (Notes): Brother at age 39 from an opioid overdose in 2014 - Personal Information Does the patient have a history or present tendencies for violence?: None Does patient have any Legal Charges or Investigations?: No Environment & Living Situation - Social, Peer-Group (Note): At home [place] and commutes home on weekends) Marital Status - Family Circumstances: Stressors - Financial Concerns: Work Occupation: Clerical - Medical History Psychiatric: reports: Depression, Anxiety Cardiovascular: reports: None Respiratory: reports: None Gastrointestinal: reports: None Skin: reports: Other - Mental Status Exam Appearance and Attire: Neatly groomed Hospital attire Attitude and Behavior: Cooperative with intact eye contact Speech: Normal rate, volume, quantity Affect and Mood: Depressed mood; affect is congruent with mood Association and Thought Process: Linear and organized Thought Content: Denies SI Endorses thoughts of wanting to be No HI No paranoia/delusions Perception: Denies AVH Sensorium, memory and orientation: Alert and oriented x 3; memory is intact Intellectual - Cognitive functioning: Average Insight and Judgement: Intact/intact Emotional and Behavioral Functioning: No agitation Ability to Self-Care: Appropriate for age - Personal Goals Short-term Goals: Be there for his kids; eventually looks forward a life outside of the [employer] Long-term Goals: See above - Risk/Protective Factors Risk Factors: N/A Protective Factors / Internal: Fear of or the actual act of killing self, Identifies reasons for living Protective Factors / External: Responsibility to children, Supportive social network of family or friends, Positive therapeutic relationships, Engaged in work or school - Plan Impression/Risk Assessment: 38 year old male with history of anxiety and depression presents today for y chiatric assessment. He is having thoguhts of wanting to be for the past 2 months. he endorses fairly chronic depression. He is in the ED as he told someone how he was feeling and this is the [employer]'s policy. He is anibal for safety. Psychiatric inpatient admission offered and declined. There is no evidence of imminent risk of harm to self and he has not had intent or plan to end his life. He is requesting discharge. He is future oriented and agrees with safety and treatment plan discussed today. Treatment - Therapy Recommendations: Referral to outpatient psychiatry Continue in outpatient therapy RETURN TO THE ED WITH SUICIDAL THOUGHTS WITH PLAN AND INTENT OR WORSENING OF DEPRESSIVE SYMPTOMS PLEASE GIVE HIM [phone] NUMBER HE SHOULD NOT HAVE ACCESS TO FIREARMS UNTIL HE CAN BE FURTHER CLEARED BY A MENTAL HEALTH PROFESSIONAL - Time Spent & Provider Location Telepsych consultation conducted via videoconferencing: Yes List names and roles of persons who participated in consult: Corine Saul. Rip Santos Telepsych Provider Location: [place], [place] Time Spent (Minutes): 55
[2024-01-14 17:25] VITALS: BP 108/88; O2SAT 99
== END 2024-01-14 17:23 | disposition home or self-care (01) ==
LOC: ED 13:07
DX: R45.851 Suicidal ideations (principal); F32.A Depression, unspecified; F41.9 Anxiety disorder, unspecified; Z56.3 Stressful work schedule
CPT/HCPCS: 36415; 80053; 80143; 80179; 80306; 81003; 82077; 82550; 83690; 83735; 84443; 85025; 90834; 99285; Q3014; 81001; 87086